=== PATIENT | male | born 1950 | race Caucasian/White ===

== ENCOUNTER → 2018-05-02 | Outpatient (CLI) | payer MEDICARE, BC ==
[2018-05-02 13:11] LABS: Blood Urea Nitrogen 18 mg/dL (9-20)
--- NOTE | 2018-05-02 16:50 | CT ---
EXAMINATION TYPE: CT abdomen pelvis w con DATE OF EXAM: 05/02/2018 COMPARISON: None INDICATION: Hematuria DLP: 1368.10 mGycm, Automated exposure control for dose reduction was used. CONTRAST: 100 ml mL of Isovue 300. Study performed with Oral Contrast TECHNIQUE: Axial images were obtained from above the diaphragm to the pubic rami in the axial plane a t 5 mm thick sections. Reconstructed images are reviewed on the computer in the coronal plane. FINDINGS: Limited CT sections are obtained the lung bases. The lung bases are clear. CT ABDOMEN: Liver: There is a 1.2 cm cyst measuring 2 Hounsfield units at the superior right lobe. Additional 1.2 cm cyst is near the ligamentum teres measuring 10 Hounsfield. Spleen: Normal Pancreas: Normal Adrenal glands: The adrenal glands are normal. Gallbladder: Normal Kidneys: No masses are evident. No hydronephrosis is present. No cysts are present. Delayed images were obtained through the kidneys, which remain unremarkable. Aorta: Vascular calcification is within the aorta. Inferior vena cava: Normal. CT PELVIS: Loops of bowel within the abdomen and pelvis are normal. There are loops of bowel which are incom pletely distended or lack oral contrast limiting their evaluation. Appendix: Normal as visualized. Urinary bladder: Thickened urinary bladder wall. This could be the etiology of hematuria. Neoplasm is not excluded. Differential diagnosis should include outlet obstruction. Multiple large calcification s are present within the dependent urinary bladder. No ureteral dilatation or hydronephrosis is evide nt. Genitourinary structures: Prostate is prominent. Multiple prostate calcifications are present. This m ay be contributing to outlet obstruction approaches the differential for the urinary bladder wall thi ckening Osseous structures: No suspicious lytic or sclerotic lesions. IMPRESSIONS: 1. Urinary bladder wall thickening. Workup for neoplasm is recommended. Differential diagnosis shoul d include Outlet obstruction. Multiple large calcifications are present within urinary bladder. 2. Prostate hypertrophy. A Yellow level critical message alert has been initiated for Rachid Chandler MD via the [employer] Critical Results System on 05/02/2018 4:45 PM. This message alert has been sent to Ezra Gómez via the preferences provided by the clinician for the receipt of Radiology Critical Findings. [employer] ID [id number].
== END | disposition home or self-care (01) ==
LOC: RADCTMAIN 12:20
PROVIDERS: ATTEND Urology
DX: N40.0 Benign prostatic hyperplasia without lower urinary tract symptoms (principal); N32.89 Other specified disorders of bladder; R31.9 Hematuria, unspecified
CPT/HCPCS: 84153; 82565; 84520; 74177; Q9967

== ENCOUNTER → 2018-05-10 | Outpatient (CLI) | payer MEDICARE, BC ==
[2018-05-10 15:21] LABS: Basophils % (A) 1 %; Eosinophils # (A) 0.1 k/uL (0-0.7); Eosinophils % (A) 1 %; HCT 46.6 % (39.0-53.0); HGB 15.2 gm/dL (13.0-17.5); Lymphocytes # (A) 1.6 k/uL (1.0-4.8); Lymphocytes % (A) 26 %; MCH 29.5 pg (25.0-35.0); MCHC 32.6 g/dL (31.0-37.0); MCV 90.8 fL (80.0-100.0); Mean Platelet Volume 7.7; Monocytes # (A) 0.4 k/uL (0-1.0); Monocytes % (A) 6 %; Neutrophils # (A) 4.2 k/uL (1.3-7.7); Neutrophils % (A) 65 %; Platelet Count 232 k/uL (150-450); RBC 5.13 m/uL (4.30-5.90); RDW 13.6 % (11.5-15.5); WBC 6.4 k/uL (3.8-10.6)
[2018-05-10 15:29] LABS: Calcium 9.7 mg/dL (8.4-10.2)
== END | disposition home or self-care (01) ==
LOC: LABPAT 14:56
PROVIDERS: ATTEND Urology
DX: Z01.818 Encounter for other preprocedural examination (principal); R31.0 Gross hematuria; R53.83 Other fatigue; N21.0 Calculus in bladder; Z01.812 Encounter for preprocedural laboratory examination
CPT/HCPCS: 80048; 85025; 93005

== ENCOUNTER 2018-05-16 10:28 | Day surgery (SDC) | payer MEDICARE, BC ==
--- NOTE | 2018-05-13 21:40 | P.GSHP ---
History of Present Illness H&P Date: 05/09/18 Chief Complaint: Gross hematuria The patient is a 67-year-old white male with recent dysuria and gross hematuria. A computed tomography scan showed prostate enlargement, bladder wall thickening, and bladder calculi. Specifically, there are approximately 8 bladder calculi measuring up to 15 mm each in diameter. He now comes for cystoscopy with cystolithotripsy. - Constitutional Constitutional: Denies chills, Denies fever - Genitourinary (Female) Genitourinary: Reports dysuria, Reports hematuria Surgical - Exam - General well developed, well nourished, no distress - Respiratory normal respiratory effort, clear to auscultation - Cardiovascular Rhythm: regular Abnormal Heart Sounds: no systolic murmur, no diastolic murmur, no rub, no S3 Gallop, no S4 Gallop, no click, no other - Abdomen Abdomen: soft, non tender, no guarding, no rigid, no rebound Hernia: umbilical - Genitourinary normal penis with no external lesions, testicles non-tender - Psychiatric oriented to time, oriented to person, oriented to place, speech is normal, memory intact Assessment and Plan (1) Bladder calculi Status: Acute Code(s): N21.0 - CALCULUS IN BLADDER SNOMED Code(s): 27677116 Plan: Cystoscopy with cystolithotripsy. The procedure has been reviewed in detail with the patient. Potential risks include anesthesia, bleeding, infection, bladder perforation, and postoperative urinary retention. It was explained to the patient that this may require multiple procedures. Lastly, cystoscopy showed erythema on the anterior bladder wall, and in view of this bladder biopsies will be performed.
[2018-05-15 08:24] VITALS: BMI 21.8
[~2018-05-16 10:28] MED LIST: DEXAMETHASONE SOD PHOSPHATE 10 MG/ML 1 ML VIAL IV ONE; LACTATED RINGERS 1,000 ML IV SCH; LIDOCAINE 1% 20 ML VIAL (10MG/ML) FOR IV START INTRADERMA PRN; MIDAZOLAM 2 MG/2 ML VIAL IV PRN; ONDANSETRON 4 MG/2 ML VIAL IVP ONE; ceFAZolin IN SWFI 2 GM/20 ML SYRINGE IVP ONE; fentaNYL (PF) 50 MCG/ML 2 ML AMP IV PRN
[2018-05-16] MEDS ORDERED: GLYCOPYRROLATE 0.2 MG/ML 2 ML VIAL ONE (14:21)
[2018-05-16] MEDS ORDERED: PROPOFOL 10 MG/ML 20 ML VIAL IV ONE (14:21)
[2018-05-16] MEDS ORDERED: MIDAZOLAM 2 MG/2 ML VIAL ONE (14:21)
[2018-05-16] MEDS ORDERED: SUCCINYLCHOLINE CHLORIDE 100 MG/5 ML SYR IV ONE (14:21)
[2018-05-16] MEDS ORDERED: LIDOCAINE 1% INJ 10MG/ML (20 ML MDV) ONE (14:21)
[2018-05-16] MEDS ORDERED: fentaNYL (PF) 50 MCG/ML 2 ML AMP ONE (14:21)
[2018-05-16] MEDS ORDERED: FUROSEMIDE 10 MG/ML 2 ML VIAL ONE (14:21)
[2018-05-16] MEDS ORDERED: ROCURONIUM BROMIDE 10 MG/ML 10 ML VIAL IV ONE (14:21)
[2018-05-16] MEDS ORDERED: HYDROmorphone (PF) 1 MG/ML ONE (14:21)
[2018-05-16] MEDS ORDERED: ePHEDrine SULFATE/0.9% NACL/PF 50 MG/5 ML SYRINGE IV ONE (14:21)
[2018-05-16] MEDS ORDERED: LACTATED RINGERS 1,000 ML IV ONE (15:16)
--- NOTE | 2018-05-16 17:11 | P.OP ---
Date of Procedure: 05/16/18 Preoperative Diagnosis: Bladder Calculi Postoperative Diagnosis: Same Procedure(s) Performed: Cystoscopy with cystolithotripsy, fulguration of bleeders Anesthesia: MARTI Surgeon: Rachid Chandler Estimated Blood Loss (ml): 30 IV fluids (ml): 1,200 Pathology: other (Bladder calculus fragments) Condition: stable Disposition: PACU Indications for Procedure: The patient is a 67-year-old white male with recent dysuria and gross hematuria. A computed tomography scan showed prostate enlargement, bladder wall thickening, and bladder calculi. Specifically, there are approximately 8 bladder calculi measuring up to 15 mm each in diameter. He now comes for cystoscopy with cystolithotripsy. Operative Findings: Multiple large bladder calculi, fragmented and removed in their entirety. Description of Procedure: The patient was taken to the operating room and placed in the dorsal lithotomy position, with legs supported in Ferdinand stirrups. The external genitalia was prepped and draped sterilely. The 30 lens was used to introduce the 22- Citizen [place] Stortz cystoscopic sheath through the urethra and into the bladder under direct vision. The urethra appeared normal. The prostate showed evidence of significant lateral lobe enlargement which was visually occluded. The bladder was examined in its entirety. The ureteral orifices appeared normal. Approximately 8 calculi were seen. No tumors were seen. No diverticuli were seen. Using the 550 micron Holmium laser probe, lithotripsy was performed. Lithotripsy was continued until all calculus fragments could be removed using the Ellik evacuator. Once this was completed, the bladder was inspected. There was no active bleeding, and no evidence of bladder perforation. Some oozing was noted within the prostatic urethra, and the Bugbee electrode was used to fulgurate these areas. A 20-[place] Weiss catheter was placed. The return was pink-tinged. The patient tolerated the procedure well was taken to the recovery room in stable condition.
[2018-05-16 17:23] VITALS: TEMP 97.5
[2018-05-16 17:34] VITALS: RESP 16
[2018-05-16] MEDS ORDERED: TAMSULOSIN 0.4 MG CAP.ER.24H PO STA (17:38)
[2018-05-16 18:35] VITALS: BP 163/77; PULSE 95
[2018-05-16] MEDS ORDERED: ACETAMINOPHEN TAB 500 MG TAB PO ONE (19:06)
== END 2018-05-16 19:15 | disposition home or self-care (01) ==
LOC: OR 10:28
PROVIDERS: ATTEND Urology
DX: N21.0 Calculus in bladder (principal); N40.0 Benign prostatic hyperplasia without lower urinary tract symptoms; Z87.891 Personal history of nicotine dependence
CPT/HCPCS: 82365; 52318; J2250; J1100; J1940; J2405; J2001; J3010; J1170; J0330; J2704; J0690

== ENCOUNTER → 2020-11-08 | Outpatient (CLI) | payer MEDICARE | END | disposition home or self-care (01) | LOC: LABWHC1 12:10 | PROVIDERS: ATTEND Urology | DX: R97.20 Elevated prostate specific antigen [PSA] (principal) | CPT/HCPCS: 36415; 84153 ==

== ENCOUNTER 2020-12-09 13:50 | Day surgery (SDC) | payer MEDICARE ==
[2020-12-08 10:28] VITALS: BMI 27.7
--- NOTE | 2020-12-08 11:52 | P.GSHP ---
History of Present Illness H&P Date: 12/06/20 Chief Complaint: Microhematuria, urinary retention The patient is a 70-year-old white male evaluated for dysuria and gross hematuria and late 2018. A CT scan showed prostate enlargement, bladder wall thickening, and bladder calculi. Specifically, there were approximately 8 bladder calculi measuring up to 15 mm each in diameter. He underwent cystolithotripsy. He previously took tamsulosin, and has taken finasteride for the past year. Prostate ultrasound in 2017 revealed a prostate volume was 77 mL. He was recently found to have microhematuria. He then developed urinary retention. A CT scan shows mild right hydroureteronephrosis, perhaps due to a recently passed calculus, as well as multiple bladder calculi. - Constitutional Constitutional: Denies chills, Denies fever - Gastrointestinal Gastrointestinal: Denies nausea, Denies vomiting - Genitourinary (Male) Genitourinary: Reports hematuria Past Medical History - Past Family History Mother Family Medical History: Cancer Father Family Medical History: Cancer Sister(s) Family Medical History: Cancer Medications and Allergies Home Medications Medication Instructions Recorded Confirmed Type Multivitamins, Thera [Multivitamin 1 tab PO Q72H 12/08/20 12/08/20 History (formulary)] Prostate Med(Unknown Name) 1 tab PO DAILY 12/08/20 12/08/20 History Allergies Allergy/AdvReac Type Severity Reaction Status Date / Time No Known Allergies Allergy Verified 12/08/20 10:15 Surgical - Exam - General well developed, well nourished, no distress - Respiratory normal respiratory effort - Abdomen Abdomen: soft, non tender, no guarding, no rigid, no rebound - Genitourinary normal penis with no external lesions, testicles non-tender - Psychiatric oriented to time, oriented to person, oriented to place, speech is normal, memory intact Results - Imaging CT scan - abdomen: report reviewed Assessment and Plan (1) Bladder calculi Status: Acute Code(s): N21.0 - CALCULUS IN BLADDER SNOMED Code(s): 71083233 (2) Unspecified hydronephrosis Status: Acute Code(s): N13.30 - UNSPECIFIED HYDRONEPHROSIS SNOMED Code(s): 28069561 Plan: Cystoscopy, right retrograde pyelogram, possible right ureteroscopy, possible right ureteral stent insertion, cystolithotripsy. The procedure then reviewed in detail with the patient. He is aware of potential risks, which include anesthesia, bleeding, infection, ureteral injury, and bladder perforation.
--- NOTE | 2020-12-09 14:22 | XR ---
EXAMINATION TYPE: XR KUB DATE OF EXAM: 12/09/2020 COMPARISON: CT 05/02/2018 INDICATION: Bladder calculi TECHNIQUE: Single view abdomen supine view FINDINGS: Normal colonic bowel gas is present. Some nonspecific small bowel gas in the left upper arm in the ab domen. There is a serpiginous curvilinear air collection on the left. In addition the small bowel, this coul d be the proximal renal collecting system that were dilated. Multiple calcifications overlie the lower pelvis. These were present on the CT examination compatible with urinary ladder stones. Couple of phleboliths are within the pelvis. Sacroiliac joints have dege nerative change. Symphysis pubis is normal. Psoas margins are normal. No organomegaly is present. IMPRESSION: 1. Multiple calcifications within the pelvis compatible with patient's known urinary bladder stones. 2. Serpiginous air collection in the left upper midabdomen may be within small bowel loop or potentia lly within the renal collecting system. Follow-up can be performed.
[2020-12-09 14:42] VITALS: RESP 16
[2020-12-09] MEDS ORDERED: LACTATED RINGERS 1,000 ML IV ONE (14:50)
[2020-12-09] MEDS ORDERED: LIDOCAINE 1% (10MG/ML) FOR IV START INTRADERMA ONE (14:50)
[2020-12-09] MEDS ORDERED: ONDANSETRON 4 MG/2 ML VIAL ONE (14:52)
[2020-12-09] MEDS ORDERED: DEXAMETHASONE SOD PHOSPHATE 4 MG/ML 1 ML VIAL IVP ONE (14:55)
[2020-12-09] MEDS ORDERED: ONDANSETRON 4 MG/2 ML VIAL IVP ONE (14:56)
[2020-12-09] MEDS ORDERED: SUCCINYLCHOLINE CHLORIDE 100 MG/5 ML SYR IV ONE (17:29)
[2020-12-09] MEDS ORDERED: MIDAZOLAM 2 MG/2 ML VIAL ONE (17:29)
[2020-12-09] MEDS ORDERED: LIDOCAINE 1% INJ 10MG/ML (20 ML MDV) ONE (17:29)
[2020-12-09] MEDS ORDERED: fentaNYL (PF) 50 MCG/ML 2 ML AMP ONE (17:29)
[2020-12-09] MEDS ORDERED: PROPOFOL 10 MG/ML 20 ML VIAL IV ONE (17:29)
[2020-12-09] MEDS ORDERED: IOPAMIDOL-370 50ML BTL MISCELLANE ONE (17:53)
[2020-12-09 19:21] VITALS: TEMP 97.3
--- NOTE | 2020-12-09 19:21 | P.OP ---
Date of Procedure: 12/09/20 Preoperative Diagnosis: Right hydronephrosis, bladder calculi Postoperative Diagnosis: Same Procedure(s) Performed: Cystoscopy, right retrograde pyelogram, right ureteroscopy, cystolithotripsy Anesthesia: MARTI Surgeon: Rachid Chandler Estimated Blood Loss (ml): 20 IV fluids (ml): 550 Pathology: other (Bladder calculus fragments, sent for chemical analysis) Condition: stable Disposition: PACU Indications for Procedure: The patient is a 70-year-old white male evaluated for dysuria and gross hematuria and late 2018. A CT scan showed prostate enlargement, bladder wall thickening, and bladder calculi. Specifically, there were approximately 8 bladder calculi measuring up to 15 mm each in diameter. He underwent cystolithotripsy. He previously took tamsulosin, and has taken finasteride for the past year. Prostate ultrasound in 2017 revealed a prostate volume was 77 mL. He was recently found to have microhematuria. He then developed urinary retention. A CT scan shows mild right hydroureteronephrosis, perhaps due to a recently passed calculus, as well as multiple bladder calculi. Operative Findings: Mild right hydroureteronephrosis, no evidence of obstruction. At least 7 bladder calculi measuring up to 2 cm in size. Description of Procedure: The patient was taken to the operating room and placed in the dorsal lithotomy position, with legs supported in Ferdinand stirrups. The external genitalia was prepped and draped sterilely. The 30 lens was used to introduce the 21-[place]rade cystoscopic sheath through the urethra and into the bladder under direct vision. The urethra appeared normal. The prostate showed evidence of significant trilobar enlargement, with complete visual occlusion. The bladder was examined in its entirety. The ureteral orifices appeared normal. A total of 7 calculi were seen. No tumors were seen. No diverticuli were seen. Using a 10-[place] cone-tipped catheter, a right retrograde pyelogram was performed. Mild right hydroureteronephrosis was noted. The intramural portion of the ureter incompletely opacified, and therefore the semirigid ureteroscope was passed into the bladder under direct vision. The right ureteral orifice was cannulated, and the distal right ureter was visualized. No calculi, tumors, or other abnormalities were noted. The cystoscope was replaced into the bladder. Using the 1000 micron Holmium laser probe, lithotripsy was performed. Lithotripsy was continued until all calculus fragments could be removed using the IES evacuator. Once this was completed, the bladder was inspected. There was no active bleeding, and no evidence of bladder perforation. A 20-[place] Weiss catheter was placed. The return was essentially clear. The patient tolerated the procedure well was taken to the recovery room in stable condition.
[2020-12-09 20:19] VITALS: BP 154/82; PULSE 72
--- NOTE | 2020-12-10 07:34 | FL ---
EXAMINATION TYPE: FL guidance operating room DATE OF EXAM: 12/09/2020 FLUOROSCOPY Fluoroscopy time (not reported) was used during retrograde urologic intervention for calculus. 5 jossue ge/s document/s the procedure.
== END 2020-12-09 20:34 | disposition home or self-care (01) ==
LOC: OR 13:50
PROVIDERS: ATTEND Urology
DX: N21.0 Calculus in bladder (principal); N13.30 Unspecified hydronephrosis; Z79.899 Other long term (current) drug therapy; Z86.718 Personal history of other venous thrombosis and embolism; N42.9 Disorder of prostate, unspecified
CPT/HCPCS: 52317; 52005; 82365; 74018; C1758; J2250; J1100; J0690; J2405; J2001; J3010; J0330; J2704; Q9967